=== PATIENT | male | born 1945 | race Caucasian/White ===

== ENCOUNTER 2016-12-26 16:32 | Inpatient (IN) | payer MEDICARE ==
[~2016-12-26] VITALS: Ht 170.2 cm; Wt 75.5 kg
--- NOTE | ~2016-12-26 | HEMODYNAMI ---
PATIENT:CHELSIE CAIN MEDICAL RECORD: [id number] : 49 [id number] ADMISSION DATE: 12/26/16 Generatedon:12/27/201615:59 Patient name: CHELSIE CAIN Patient #: [id number] SSN: [id number] : 1945 Date of study: 12/27/2016 Page: Of Hemodynamic Procedure Report Patient Data Patient Demographics Procedure consent was obtained First Name: CHELSIE Gender: Male Last Name: PAYTON : 1945 Patient #: [id number] Age: 71 year(s) Race: Unknown SSN: [id number] Additional ID: [id number] Contact details Address: [address] [address] State: [place] City: [place] Zip code: [address] Admission Admission Data Admission Date: 12/26/2016 Admission Time: 21:12 Arrival Date: 12/27/2016 Arrival Time: 0:00 Admit Source: Other Room #: D.2120 Height (in.): 67 BSA: 1.92 (m2) Height (cm.): 170.18 BMI: 27.62 (kg/m2) Weight (lbs.): 176.37 Weight (kg.): 80 Lab Results Lab Result Date: 12/27/2016 Lab Result Time: 0:00 Biochemistry Name Units Result Min Max BUN mg/dl 19 --(----)*- 7 18 Creatinine mg/dl 1 --(--*-)-- 0.6 1.3 CBC Name Units Result Min Max Hemoglobin g/dl 16.6 --(---*)-- 13.5 17.5 Procedure Procedure Types Cath Procedure Diagnostic Procedure LHC Coronaries w/Grafts PCI Procedure Coronary Stent Initial Miscellaneous Procedures Moderate Sedation up to 15 minutes Procedure Description Procedure Date Procedure Date: 12/27/2016 Procedure Start Time: 15:30 Procedure End Time: 15:56 Procedure Staff Name Function Julio Cesar Esquivel MD Performing Physician Roseanne Dodge RT Scrub Jose Chance RN Nurse Jv Melendez RT Nuclear Weapons Mechanical Specialist Lalita Arango RT Monitor Procedure Data Cath Procedure Fluoroscopy Diagnostic fluoroscopy Total fluoroscopy Time: time: 10.5 min 10.5 min Diagnostic fluoroscopy Total fluoroscopy dose: 590 dose: 590 mGy mGy Contrast Material Contrast Material Type Amount (ml) Isovue 300 95 Entry Location Entry Primary Successful Side Size Upsize Upsize Entry Closure Succes sful Closure Location (Fr) 1 (Fr) 2 (Fr) Remarks Device Remarks Femoral Right 5 Fr 6 Fr Vascade artery Short Closure System Estimated blood loss: 10 ml Diagnostic catheters Device Type Used For End Catheter Placement Cordis 5Fr JL 4.0 Procedure Catheter (MP) Cordis 5Fr 3DRC Catheter Procedure (MP) Diagnostic Infinity 5Fr Procedure AR 2 MOD catheter Procedure Complications No complications Procedure Medications Medication Administration Route Dosage Oxygen NC 2 l/min Heparin Flush Bag added to field 2 bags (1000units/500ml NS) 0.9% NaCl I.V. 100 ml/hr Fentanyl I.V. 50 mcg Versed I.V. 1 mg Fentanyl I.V. 50 mcg Versed I.V. 1 mg Fentanyl I.V. 50 mcg Heparin Bolus I.V. 4000 units Integrilin (Bolus I.V. 7.3 ml 2mg/ml) Fentanyl I.V. 50 mcg Plavix P.O. 600 mg Amiodarone I.V. drip (600mg/100ml) Hemodynamics Rest BSA: 1.92 (m2) HGB: 16.6 (g/dl) O2 Consumption: Estimated: 216.54 (ml/min) O2 Co nsumption indexed: Estimated:112.78 (ml/min/m) Heart Rate: 62 (bpm) Snapshots Pre Cath Intra NCS Post Cath Vital Signs Time Heart Resp SPO2 NIBP (mmHg) Rhythm Pain Sedation Rate (ipm) (%) Status Level (bpm) 14:48:18 61 21 97 137/70(118) NSR 0 (11) 10(A) , No pain 14:52:38 60 20 99 132/67(104) NSR 0 (11) 10(A) , No pain 14:56:52 60 20 97 127/65(98) NSR 0 (11) 10(A) , No pain 15:01:04 61 20 98 124/67(98) NSR 0 (11) 10(A) , No pain 15:05:20 60 20 98 130/65(81) NSR 0 (11) 10(A) , No pain 15:09:38 59 18 97 132/66(101) NSR 0 (11) 10(A) , No pain 15:13:58 61 18 95 132/65(100) NSR 0 (11) 10(A) , No pain 15:18:14 59 20 94 117/62(91) NSR 0 (11) 9(A) , No pain 15:22:26 59 21 95 129/69(107) NSR 0 (11) 9(A) , No pain 15:26:40 61 19 92 139/80(116) NSR 0 (11) 9(A) , No pain 15:30:56 64 19 94 145/83(116) NSR 0 (11) 9(A) , No pain 15:35:10 67 19 93 153/88(125) NSR 0 (11) 9(A) , No pain 15:39:26 73 18 95 160/86(130) NSR 0 (11) 9(A) , No pain 15:43:44 74 18 92 164/93(129) NSR 0 (11) 9(A) , No pain 15:48:08 73 17 93 166/92(137) NSR 0 (11) 9(A) , No pain 15:52:33 74 17 92 167/85(137) NSR 0 (11) 9(A) , No pain 15:56:06 71 18 94 164/85(133) NSR 0 (11) 10(A) , No pain Medications Time Medication Route Dose Verified Delivered Reason Notes Effectiveness by by 14:56:13 Oxygen NC 2 l/min Jsoe Garcia used for Robson Chance project manager RN 14:56:21 Heparin Flush added 2 bags Jose Garcia used for Bag to Robson Chance project manager (1000units/500ml field RN NS) 14:56:35 0.9% NaCl I.V. 100 ml/hr Jose Garcia Per physician Robson Chance RN RN 15:14:01 Fentanyl I.V. 50 mcg Jose Garcia for sedation Robson Chance RN RN 15:14:10 Versed I.V. 1 mg Jose Jose for sedation Robson Chance RN RN 15:15:27 Fentanyl I.V. 50 mcg Jose Jose for sedation Robson Chance RN RN 15:15:32 Versed I.V. 1 mg Jose Jose for sedation Robson Chance RN RN 15:21:42 Fentanyl I.V. 50 mcg Jose Jose for sedation Robson Chance RN RN 15:40:10 Integrilin I.V. 7.3 ml Jose Jose for wasted (Bolus 2mg/ml) Robson Chance RN antiplatelet 2.7mL of RN therapy integrilin 15:40:10 Heparin Bolus I.V. 4000 units Jose Jose for Robson Chance RN anticoagulation RN 15:50:58 Fentanyl I.V. 50 mcg Jose Jose for sedation Robson Chance RN RN 15:54:34 Plavix P.O. 600 mg Jose Jose for Robson Chance RN antiplatelet RN therapy 15:57:18 Amiodarone I.V. discontinued Jose Garcia Per physician (600mg/100ml) drip Robson Chance RN patient centered care specialist Log Time Note 14:30:05 Jv Melendez RT(R) sent for patient. Start room use. 14:43:01 Admit Source: Other 14:43:25 Patient Height : 170.18 inches 14:43:30 Patient Weight : 80 lbs 14:44:08 Lab Result : BUN 19 mg/dl 14:44:08 Lab Result : Hemoglobin 16.6 g/dl 14:44:08 Lab Result : Creatinine 1 mg/dl 14:44:26 Procedure type changed to Cath procedure, Diagnostic procedure, LHC, Coronaries w/Grafts, PCI procedure, Coronary Stent Initial, Miscellaneous Procedures, Moderate Sedation up to 15 minutes 14:44:34 Diagnostic Cath Status : Elective 14:45:10 Time tracking: Regular hours 14:45:15 Plan of Care:Hemodynamics will remain stable., Cardiac rhythm will remain stable., Comfort level will be maintained., Respiratory function will remain adequate., Patient/ family verbilizes understanding of procedure., Procedure tolerated without complication., Recovers from procedure without complications.. 14:45:21 Patient received from Med II to [facility] 3 Alert and oriented. Tansferred to table in Supine position. 14:45:22 Warm blankets applied, and mairah hugger turned on for patient comfort. 14:45:23 Correct patient and procedure confirmed by team. 14:45:25 Signed procedure consent form obtained from patient. 14:45:50 H&P Date Dictated: 12/26/2016 Within 30 days and on chart.. 14:45:54 Pre-procedure instructions explained to patient. 14:45:55 Family in waiting room. 14:45:57 Patient NPO since Midnight. 14:46:03 Is the patient allergic to Iodine/contrast media? No. 14:46:10 Is patient on blood thinner?No 14:46:17 Patient diabetic? No. 14:46:21 Snore? Yes 14:46:39 IV patent on arrival in left forearm with 0.9% NaCl at [facility]. 14:46:45 Lab results completed and on chart. 14:46:50 Right groin area was prepped with chlora-prep and draped in sterile fashion 14:46:51 Alarms reviewed by R. N. 14:46:52 Sharps counted by scrub and verified by R.N. 14:46:53 Physician paged 14:47:10 ECG and BP/O2 sat monitors applied to patient. 14:47:13 Vital chart was started 14:47:16 Baseline sample Acquired. 14:47:20 Full Disclosure recording started 14:56:13 Oxygen 2 l/min NC was given by Jose Chance RN; used for procedure; 14:56:21 Heparin Flush Bag (1000units/500ml NS) 2 bags added to field was given by Jose Chance RN; used for procedure; 14:56:35 0.9% NaCl 100 ml/hr I.V. was given by Jose Chance RN; Per physician; 15:04:30 Zero performed for pressure channel P1 15:04:47 Zero performed for pressure channel P1 15:13:48 Physician arrived 15:13:49 --------ALL STOP TIME OUT------ 15:13:49 Final Timeout: patient, procedure, and site verified with staff and physician. All members of the team are in agreement. 15:13:52 Right groin site verified by team. 15:13:59 Sedation plan: IV Moderate Sedation Versed, Fentanyl 15:14:01 Fentanyl 50 mcg I.V. was given by Jose Chance RN; for sedation; 15:14:10 Versed 1 mg I.V. was given by Jose Chance RN; for sedation; 15:15:27 Fentanyl 50 mcg I.V. was given by Jose Chance RN; for sedation; 15:15:32 Versed 1 mg I.V. was given by Jose Chance RN; for sedation; 15:21:42 Fentanyl 50 mcg I.V. was given by Jose Chance RN; for sedation; 15:26:52 Arrival Date: 12/27/2016 12:00:00 AM 15:29:44 Procedure started. 15:29:46 Use device set Femoral Dx 15:29:58 Acist Syringe opened to sterile field. 15:29:58 Bag Decanter opened to sterile field. 15:29:59 Medline Cath Pack opened to sterile field. 15:30:00 Terumo 5Fr [place] Sheath opened to sterile field. 15:30:00 St Pj 260cm J .035 wire opened to sterile field. 15:30:02 Acist Hand Control opened to sterile field. 15:30:02 Acist Manifold opened to sterile field. 15:30:04 Diagnostic Infinity 5Fr Multipack catheter opened to sterile field. 15:30:05 Tegaderm 4 x 4 opened to sterile field. 15:30:39 Local anesthetic to right femoral artery with Lidocaine 2% by Julio Cesar Esquivel MD.INITIAL ACCESS ONLY 15:31:12 A 5 Fr sheath was inserted into the Right Femoral artery 15:34:22 A Cordis 5Fr JL 4.0 Catheter (MP) was advanced over the wire and used for Procedure. 15:34:29 LCA angiography performed. 15:35:07 A Cordis 5Fr 3DRC Catheter (MP) was advanced over the wire and used for Procedure. 15:35:12 MOORE to LAD angiography performed. 15:35:22 RCA angiography performed. 15:36:00 A Diagnostic Infinity 5Fr AR 2 MOD catheter was advanced over the wire and used for Procedure. 15:36:47 SVG to RCA angiography performed. 15:37:05 Catheter removed. 15:38:20 Proceeding to intervention. 15:38:57 Sheath upsized to a 6 Fr Short. 15:40:10 Heparin Bolus 4000 units I.V. was given by Jose Chance RN; for anticoagulation; 15:40:10 Integrilin (Bolus 2mg/ml) 7.3 ml I.V. was given by Jose Chance RN; for antiplatelet therapy; wasted 2.7mL of integrilin 15:40:28 Terumo 6Fr [place] Sheath opened to sterile field. 15:40:29 Promosome BasixCompak Inflation Kit opened to sterile field. 15:40:30 House Whisper J 300cm 0.014 guide wire opened to sterile field. 15:40:32 Cordis 6FR XBLAD 3.5 guide catheter opened to sterile field. 15:40:52 whisper wire advanced. 15:41:06 Catheter removed. unable to cannulate vessel. 15:42:17 Medtronic Launcher 6Fr EBU 3.0 guide catheter opened to sterile field. 15:42:30 6 Fr EBU 3.0 guide catheter was inserted over the wire 15:45:08 Wire removed. unable to cross lesion. 15:45:38 RentJiffy Fielder XT J 300cm 0.014 guide wire opened to sterile field. 15:48:23 Inflation number: 1 A [place] Sci Glascock 3.0 X 12 balloon was prepped and advanced across the Prox CX, then inflated to 13 ANGELI for 0:10 (min:sec). 15:48:29 Inflation number: 2 The [place] Sci Glascock 3.0 X 12 balloon was reinflated across the Prox CX, to 13 ANGELI for 0:10 (min:sec). 15:49:19 Balloon removed over the wire. 15:50:58 Fentanyl 50 mcg I.V. was given by Jose Chance RN; for sedation; 15:52:04 Inflation Number: 3 A Medtronic Resolute 3.0 X 15 stent was prepped and advanced across the Prox CX. The stent was deployed at 17 ANGELI for 0:10 (min:sec). 15:52:35 Vascade 6/7 Fr Closure Device opened to sterile field. 15:52:38 Wire removed. 15:52:39 Guide catheter removed. 15:54:04 Sheath removed intact; hemostasis achieved with Vascade Closure System to the Right Femoral artery. 15:54:08 Procedure ended.(Physican Out) 15:54:20 Fluoroscopy time 10.50 minutes. 15:54:24 Fluoroscopy dose: 590 mGy 15:54:24 Flurop Dose total: 590 15:54:30 Contrast amount:Isovue 300 95ml. 15:54:31 Sharps counted by scrub and verified by R.N. 15:54:34 Plavix 600 mg P.O. was given by Jose Chance RN; for antiplatelet therapy; 15:54:39 Insertion/operative site no bleeding no hematoma. 15:54:42 Post-op/insertion site Right Femoral artery dressed using a 4 x 4 and Tegaderm. 15:54:54 Post-procedure physical assessment completed. ASA score P 2 - A patient with mild systemic disease as per Julio Cesar Esquivel MD. 15:54:57 Post procedure rhythm: sinus rhythm 15:55:01 Estimated blood loss: 10 ml 15:55:02 Post procedure instruction explained to patient.Patient verbalizes understanding. 15:55:13 Procedure and supply charges have been captured, reviewed, submitted and are correct. 15:55:38 Procedure Complication : No complications 15:55:50 See physician's report for complete and final results. 15:55:59 Report given to [facility]. 15:56:03 Patient transfered to [facility] with Stretcher. 15:56:05 Procedure ended. 15:56:05 Full Disclosure recording stopped 15:56:08 End room use (Document Last) 15:57:18 Amiodarone (600mg/100ml) discontinued I.V. drip was given by Jose hCance RN; Per physician; 15:59:08 Vital chart was stopped Intervention Summary Intervention Notes Time ActionType Lesion and Equipment Action# Pressure Duration Attributes Used 15:48:23 Inflate Prox CX [place] 1 13 00:10 balloon Sci Glascock 3.0 X 12 balloon 15:48:29 Reinflate Prox CX [place] 2 13 00:10 balloon Sci Glascock 3.0 X 12 balloon 15:52:04 Place stent Prox CX Medtronic 3 17 00:10 Resolute 3.0 X 15 stent Device Usage Item Name Manufacture Quantity Catalog Number Hospital Part Current Mini [facility] Lot# / Charge Number Stock Stock Serial# Code Acist Acist 1 [id number] [id number] 074565 454817 20 Syringe Medical Systems Inc Bag Microtek 1 2002S 361471 68292 440931 5 Apsalar Inc. Medline Cardinal 1 [id number] 129766 26296 406621 5 Cath Pack Health Terumo 5Fr Terumo 1 [id number] 223552 153172 557920 [address] Pj St Pj 1 006298 449482 523550 475452 30 260cm J .035 wire Acist Hand Acist 1 46906 821089 670136 323965 5 RediLearning Medical Systems Inc Acist Acist 1 15194 123763 845977 790535 5 International Battery Medical Systems Inc Diagnostic Cardinal 1 [id number] 305751 57476 733236 30 Infinity Health 5Fr Multipack catheter Tegaderm 4 3M 1 1626W 746227 408322 592770 5 x 4 Cordis 5Fr Cardinal 1 [id number] 5 JL 4.0 Health Catheter (MP) Cordis 5Fr Cardinal 1 749602 5 3DRC Health Catheter (MP) Terumo 6Fr Terumo 1 [id number] 028485 103228 927445 40 [place] Sheath [facility] 1 [id number] 965733 750906 429651 15 BasixCompak Medical Inflation Kit [facility] 1 [id number] 279945 515117 558179 5 Whisper J Vascular 300cm 0.014 guide wire Cordis 6FR Cardinal 1 [id number] 250332 481022 041022 10 XBLAD 3.5 Health guide catheter Diagnostic Cardinal 1 [id number] 415478 201921 390792 20 Infinity Health 5Fr AR 2 MOD catheter Medtronic Medtronic 1 [id number] 441470 23613 426859 0 Launcher 6Fr EBU 3.0 guide catheter [facility] 1 [id number] 053409 600541 595013 5 Fielder XT Vascular J 300cm 0.014 guide wire [place] Sci [place] 1 [id number] 400412 732801 963926 1 [id number] Glascock Scientific 3.0 X 12 balloon Medtronic Medtronic 1 [id number] 374943 913162 7 [id number] Resolute 3.0 X 15 stent Vascade 6/7 Cardiva 1 [id number] 621796 630316 473230 5 Fr Closure Medical, Device Inc. Signature Audit Pride Stage Time Signature Unsigned Intra-Procedure 12/27/2016 Lalita Arango 3:59:05 PM RT(R) Signatures Monitor : Lalita Nba Signature : RT Date : Time : [address] [place] [address]
[~2016-12-26 16:32] MED LIST: ALDACTONE50 MG PO; ASPIRIN 81 MG E81 MG PO; BAYER CHEWABLE81 MG OR; CEFTIN500 MG PO; CORDARONE200 MG PO; COREG6.25 MG PO; COUMADIN1 MG PO; COUMADIN2 MG PO; COUMADIN4 MG; FISH OIL 1,2001 CA1 PO; LASIX40 MG PO; LISINOPRIL10 MG PO; LISINOPRIL5 MG PO; LOPRESSOR25 MG PO; MAXZIDE-25 MG T1 TAB OR; ZETIA10 MG PO; ZOCOR80 MG OR
[2016-12-26 17:12] LABS: BASOPHILS 0.2 % (0.0-2.0); EOSINOPHILS 3.5 % (0-7); HEMATOCRIT 49.3 % (42.0-54.0); HEMOGLOBIN 16.6 g/dL (13.5-17.5); IMMATURE GRANULOCYTES 0.3 % (0-5); LYMPHOCYTES 9.3 % (15-50); MCHC 33.7 g/dL (31.0-37.0); MCV 92.1 fL (80.0-100.0); MEAN PLATELET VOLUME 11.2 fL (7.4-10.4); MONOCYTES 10.2 % (2-11); NEUTROPHILS 76.5 % (40-80); PLATELET COUNT 183 10x3/uL (130-400); RBC 5.35 10x6/uL (4.20-6.10); RDW 13.4 % (11.5-14.5); WBC 9.5 10x3/uL (4.8-10.8)
[2016-12-26 17:27] LABS: ALBUMIN 3.7 g/dL (3.4-5.0); ALKALINE PHOSPHATASE 92 U/L (46-116); ALT (SGPT) 34 U/L (10-68); BILIRUBIN - TOTAL 0.41 mg/dL (0.2-1.3); CALC OSMOLALITY 281 mosm/kg (275-300); CALCIUM 8.9 mg/dL (8.5-10.1); CARBON DIOXIDE 24.3 mmol/L (21.0-32.0); CHLORIDE - SERUM 107 mmol/L (98-107); GLUCOSE 117 mg/dL (74-106); POTASSIUM - SERUM 4.7 mmol/L (3.5-5.1); PROTEIN - SERUM 7.4 g/dL (6.4-8.2); SODIUM 140 mmol/L (136-145); UREA NITROGEN 19 mg/dL (7-18); eGFR NON AFRICAN AMERICAN 79 mL/min (90-120)
[2016-12-26 17:52] LABS: CKMB 1.7 U/L (0.0-3.6); CREATINE KINASE 76 UL (21-232); TROPONIN-I 0.023 ng/mL (0.000-0.060)
[2016-12-26 20:00] LABS: APTT 27.8 SECONDS (22.8-39.4); INR 1.31 (0.85-1.17); PROTIME 16.2 SECONDS (11.6-15.0)
[2016-12-26 21:07] LABS: MAGNESIUM - SERUM 2.2 mg/dL (1.8-2.4)
--- NOTE | 2016-12-26 21:58 | NUR ---
REPORT FROM ANDREA CHACKO.
--- NOTE | 2016-12-26 23:00 | NUR ---
ARRIVED TO FLOOR, VIA STRETCHER ACCOMPANIED BY HOSPITAL STAFF AND FAMILY. ORIENTED TO UNIT. PLACED ON TELEMETRY. CALL LIGHT IN REACH. WILL CONTINUE TO MONITOR. SEE NURSE ASSESSMENT.
[2016-12-26 23:29] VITALS: BP 108/70; Ht 170.2 cm; Wt 75.5 kg
--- NOTE | 2016-12-27 03:08 | NUR ---
DECREASED DRIP TO 0.5MG. HR REMAINS 130S ST.
--- NOTE | 2016-12-27 06:16 | NUR ---
DR. JONES AT BEDSIDE NEW ORDERS RECEIVED. ANOTHER 15OMG BOLUS AND INCREASE AMIODARONE DRIP TO 1MG/MIN. BP 101/67, WILL BOLUS OVER 30MIN INSTEAD OF 10MIN.
[2016-12-27 08:02] VITALS: BP 106/47
--- NOTE | 2016-12-27 09:17 | NUR ---
LOWERED AMIODARONE DRIP BACK TO ORIGINAL DOSE OF 0.5MG/HR R/T HR STAYING IN SINUS RHYTHM BETWEEN 58-60. WILL CONTINUE TO MONITER TELEMETRY STATUS CLOSELY.
[2016-12-27 10:40] LABS: BASOPHILS 0.1 % (0.0-2.0); EOSINOPHILS 0.3 % (0-7); HEMATOCRIT 45.6 % (42.0-54.0); HEMOGLOBIN 15.6 g/dL (13.5-17.5); IMMATURE GRANULOCYTES 0.1 % (0-5); LYMPHOCYTES 10.2 % (15-50); MCH 31.2 pg (26.0-34.0); MCHC 34.2 g/dL (31.0-37.0); MCV 91.2 fL (80.0-100.0); MEAN PLATELET VOLUME 10.9 fL (7.4-10.4); MONOCYTES 8.5 % (2-11); NEUTROPHILS 80.8 % (40-80); PLATELET COUNT 166 10x3/uL (130-400); RDW 13.7 % (11.5-14.5)
[2016-12-27 10:52] LABS: CALC OSMOLALITY 279 mosm/kg (275-300); CALCIUM 8.8 mg/dL (8.5-10.1); CARBON DIOXIDE 25.6 mmol/L (21.0-32.0); CHLORIDE - SERUM 106 mmol/L (98-107); CREATININE - SERUM 0.8 mg/dL (0.6-1.3); GLUCOSE 103 mg/dL (74-106); POTASSIUM - SERUM 4.2 mmol/L (3.5-5.1); SODIUM 139 mmol/L (136-145); UREA NITROGEN 17 mg/dL (7-18); eGFR NON AFRICAN AMERICAN > 90 mL/min (90-120)
[2016-12-27 11:09] VITALS: BP 137/59
--- NOTE | 2016-12-27 12:24 | NUR ---
CONSENTS SIGNED FOR CATH LATER TODAY AND PLACED IN CHART. PT HAD LIGHT LUNCH PER ORDER AND IS RESTING QUIETLY IN BED WITH AT BEDSIDE. AMIODARONE DRIP STILL IN PLACE @0.5MG/HR. TELEMETRY RUNNING SINUS @60. WILL CPOC.
--- NOTE | 2016-12-27 13:20 | HP ---
PATIENT: CHELSIE CAIN MEDICAL RECORD: [id number] ACCOUNT: [id number] LOCATION:[address] : [birth year] ADMISSION DATE: 12/26/16 HISTORY AND PHYSICAL EXAMINATION REASON FOR ADMISSION: Fast heart rate and shortness of breath. HISTORY OF PRESENT ILLNESS: The patient is a 71-year-old male with history of ischemic cardiomyopathy, CAD, post-bypass grafting in 2007. He has a pacemaker defibrillator. His last EF was 25% and last angiogram was 2 years previously. He said he felt pretty well and walking a mile a day on a treadmill without symptoms until yesterday afternoon about 3:30 p.m., he had sudden onset of shortness of breath, noticed his heart rate was increased. He arrived to the Emergency Room, was in a wide complex tachycardia. He was given Cordarone with improvement in his ventricular rate. He denies chest pain now. PAST MEDICAL HISTORY: Cardiomyopathy, CAD post-WA, essential hypertension, blind left eye, aortic stenosis with aortic valve replacement, essential hypertension, hyperlipidemia, history of stroke with retinal artery occlusion, acute WA times 2 in the past, last January 2014 with V-tach and defibrillator placement, osteoarthritis, history of squamous cell carcinoma of the skin, removed, and atrial fibrillation. FAMILY HISTORY: Father with hypertension and lung cancer from smoking, and mother with CAD and hypertension. ALLERGIES: None known. CURRENT MEDICATIONS: Aspirin 81 mg a day, simvastatin 80 mg at h.s., Zetia 10 mg daily, Coumadin 1 mg p.o. daily, 2 mg p.o. once weekly, Lasix 20 mg p.o. q.a.m., Coreg 6.25 mg p.o. b.i.d., amiodarone 200 mg p.o. daily, and lisinopril 5 mg p.o. daily. 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 Never smoked. No alcohol use. REVIEW OF SYSTEMS: GENERAL: He felt well until yesterday when he developed fatigue and shortness of breath. HEENT: Chronic blindness in his left eye, fair vision in the right. Denies any sinus congestion, sore throat or new hearing difficulty. RESPIRATORY: Shortness of breath with episode yesterday. No sputum production. CARDIAC: Denied chest pain, but had marked palpitations that he can feel yesterday. No claudication. GASTROINTESTINAL: No nausea, vomiting, change in stools, or blood per rectum. GENITOURINARY: Nocturia once nightly. ENDOCRINE: Denies polyuria, polydipsia, heat, or cold intolerance. NEUROLOGIC: Remote history of stroke. No motor deficits. Currently no history of seizures or memory loss. MUSCULOSKELETAL: Chronic arthralgias in the lumbar spine. PSYCHIATRIC: Denies depressed mood. PHYSICAL EXAMINATION: VITAL SIGNS: Blood pressure was 131/77 with a temperature of 98 degrees Fahrenheit orally, pulse 138, respirations of 27 and unlabored. HISTORY AND PHYSICAL [id number] CHELSIE CAIN HEENT: Normocephalic. He has scarring and plaque in his left cornea with no vision. Right eye has fair vision. NECK: No bruits or masses. CHEST: Distant breath sounds without wheeze or rales. HEART: Tachycardic with an aortic valvular murmur. ABDOMEN: Soft. GENITOURINARY: Deferred. EXTREMITIES: No CCE. NEUROLOGIC: The patient oriented to person, place, and time. Cranial nerves are intact grossly. No motor deficits. Gait not tested. PSYCHIATRIC: Denies depressed mood. LABORATORY DATA: His white count is 9500 with H&H of 16 and 49 respectively. BMP is normal with a BUN of 19, potassium of 4.7, and glucose of 117, nonfasting. Magnesium normal at 2.2. INR is 1.31. DIAGNOSTIC DATA: Chest x-ray shows stable cardiomegaly with no pulmonary edema appreciated. EKG showed sinus tachycardia with bundle branch block, abnormal EKG showing a wide based ventricular tachycardia. ASSESSMENT: 1. Symptomatic ventricular tachycardia. 2. History of coronary artery disease. 3. Cardiomyopathy with EF of 25%. 4. Hypertension. 5. Hyperlipidemia. 6. History of aortic valve replacement with subtherapeutic INR. PLAN: He is currently on cardiac floor with constant monitoring. IV amiodarone. Dr. Whyte has seen the patient. We will interrogate pacemaker with further recommendations to follow. TRANSINT:[id number] Voice Confirmation ID: [id number] DOCUMENT ID: [id number] KIMBERLY THOMAS MD at 1320 CC: [id number] DICTATION DATE: 12/27/16810 FRAMING CARPENTER: 12/27/16 0915 ADM IN [facility] [address] [place] [address]
--- NOTE | 2016-12-27 14:01 | NUR ---
Patient Name: CHELSIE CAIN Admission Status: ER Accout number: [id number] Admission Date: 12-26-2016 : 1945 Admission Diagnosis: Attending: TAZ Current LOS: 1 Anticipated DC Date: Planned Disposition: Home Primary Insurance: [facility] Discharge Planning Comments: * Is the patient Alert and Oriented? Yes 0 * How many steps to enter\exit or inside your home? 2 0 * PCP DR. THOMAS 0 * Pharmacy [facility] OR [facility] ORDER 0 * Preadmission Environment Home with Family 0 * ADLs Independent 0 * Equipment None 0 * Other Equipment NO MEDICAL EQUIPMENT PROVIDER PREFERENCE 0 * List name and contact numbers for known caregivers / representatives who currently or will assist patient after discharge: IDALIA PARKER, / [phone] 0 * Community resources currently utilized None 0 * Please name any agencies selected above. NONE 0 * Additional services required to return to the preadmission environment? No 0 * Can the patient safely return to the preadmission environment? Yes 0 * Has this patient been hospitalized within the prior 30 days at any hospital? No 0 CM MET WITH PT AND SPOUSE IN ROOM TO DISCUSS DISCHARGE PLANNING AND NEEDS. PT REPORTS LIVING AT HOME INDEPENDENTLY WITH SPOUSE. PT HAS NO MEDICAL EQUIPMENT AND NO OUTSIDE SERVICES ASSISTING IN THE HOME. CM DISCUSSED AVAILABILITY OF HOME HEALTH, REHAB SERVICES AND MEDICAL EQUIPMENT. PT DENIES DISCHARGE NEEDS, REPORTS HER SPOUSE WILL PICK HER UP FOR DISCHARGE HOME. PT PLANS TO DISCHARGE HOME WITH SPOUSE, NO ANTICIPATED NEEDS. CM TO FOLLOW AND ASSIST IF NEEDED. Door To Door Salesperson: Db Cooley
--- NOTE | 2016-12-27 15:03 | NUR ---
PT OFF TO COIN BOX COLLECTOR. FAMILY WAITING IN ROOM. NO CURRENT NEEDS.
--- NOTE | 2016-12-27 18:21 | NUR ---
VSS. PERIPHERAL PULSES INTACT. R.GROIN DRSG CDI NO S/S OF BLEEDING OR HEMATOMA NOTED. FAMILY AT BEDSIDE. CL IN REACH. WILL CTM.
[2016-12-27 20:20] VITALS: BP 99/42
[2016-12-28 00:15] VITALS: BP 107/52
[2016-12-28 04:20] VITALS: BP 122/47
[2016-12-28 05:09] LABS: BASOPHILS 0.3 % (0.0-2.0); EOSINOPHILS 2.5 % (0-7); HEMATOCRIT 42.6 % (42.0-54.0); HEMOGLOBIN 14.2 g/dL (13.5-17.5); IMMATURE GRANULOCYTES 0.1 % (0-5); LYMPHOCYTES 7.2 % (15-50); MCH 30.7 pg (26.0-34.0); MCHC 33.3 g/dL (31.0-37.0); MEAN PLATELET VOLUME 11.5 fL (7.4-10.4); MONOCYTES 11.6 % (2-11); NEUTROPHILS 78.3 % (40-80); PLATELET COUNT 155 10x3/uL (130-400); RBC 4.63 10x6/uL (4.20-6.10); RDW 13.8 % (11.5-14.5)
[2016-12-28 05:18] LABS: WBC 7.1 10x3/uL (4.8-10.8)
[2016-12-28 06:11] LABS: ANION GAP 13.2 mmol/L (8-16); CALCIUM 8.1 mg/dL (8.5-10.1); CARBON DIOXIDE 24.9 mmol/L (21.0-32.0); POTASSIUM - SERUM 4.1 mmol/L (3.5-5.1); T4 THYROXIN - FREE 2.19 ng/dL (0.76-1.46); THYROID STIMULATING HORMONE 0.01 uIU/mL (0.36-3.74)
[2016-12-28 06:12] LABS: CREATININE - SERUM 1.1 mg/dL (0.6-1.3)
[2016-12-28 06:13] LABS: TROPONIN-I 0.073 ng/mL (0.000-0.060)
[2016-12-28 08:39] VITALS: BP 108/54
[2016-12-28] MEDS ORDERED: LOVENOX80 MG/0.8 SC (10:16)
[2016-12-28] MEDS ORDERED: PLAVIX75 MG PO (10:16)
[2016-12-28] MEDS ORDERED: CORDARONE200 MG PO (10:17)
[2016-12-28] MEDS ORDERED: COUMADIN2 MG PO (10:20)
[2016-12-28] MEDS ORDERED: PEPCID20 MG PO (10:21)
--- NOTE | 2016-12-28 12:30 | NUR ---
DISCHARGE INSTRUCTIONS COMPLETED. PAPERS SIGNED AND OBTAINED IN CHART. SCRIPTS GIVEN FOR PLAVIX, PEPCID AND LOVENOX. D/C PTS L.WRIST PIV AND L.AC PIV WITH CATHETER TIP FULLY INTACT. BELONGINGS COLLECTED. PT READY TO BE WHEELED DOWN BY HOSPITAL TELEVISION RENTAL CLERK, AT SIDE. NO FURTHER NEEDS.
--- NOTE | 2017-01-03 08:46 | OP ---
PATIENT NAME: CHELSIE CAIN MEDICAL RECORD: [id number] :49 LOCATION:D.M2 D.2120 ADMISSION DATE:12/26/16 SURGEON: BRITT ZHANG MD DATE OF OPERATION: 12/27/2016 PROCEDURES: 1. PTCA stent left circumflex. 2. Left heart catheterization. 3. Selective coronary angiography. 4. Vein graft angiography. 5. MOORE angiography. PROCEDURE IN DETAIL: After informed consent was obtained and after a detailed explanation of the risks, benefits as well as alternative therapies, the patient elected to proceed with angiogram and angioplasty. The right femoral area was prepped and draped in normal sterile fashion. The right femoral artery was cannulated via modified Seldinger technique with placement of a 6-Divehi sheath. All catheters exchanged through this sheath. FINDINGS 1. The left main showed no significant angiographic disease. 2. Left anterior descending is totally occluded in the proximal vessel. 3. MOORE to the LAD is widely patent. 4. Left circumflex has a 90% stenosis at the ostium. 5. The right coronary is totally occluded in the mid vessel. 6. Vein graft to the right coronary is widely patent. PTCA STENT OF THE LEFT CIRCUMFLEX: The stent used was a 3.0 x 15 mm Resolute. Result was 0% residual stenosis. OVERALL IMPRESSION: Successful percutaneous transluminal coronary angioplasty stent of the left circumflex going from 90% initial stenosis to 0% residual. TRANSINT:[id number] Voice Confirmation ID: [id number] DOCUMENT ID: [id number] BRITT ZHANG MD at 0846 CC: [id number] DICTATION DATE: 12/27/16 1600 HOT WORT SETTLER: 12/27/162045 DIS IN 12/28/16 [id number] [place] [address]
--- NOTE | 2017-01-03 08:46 | DS ---
PATIENT:CHELSIE MÉNDEZ :49 MEDICAL RECORD: [id number] DISCHARGE SUMMARY ADMISSION DATE: 12/26/16 DISCHARGE DATE: 12/28/16 DIAGNOSES: 1. Ventricular tachycardia. 2. Cardiomyopathy. 3. Coronary artery disease. 4. Percutaneous transluminal coronary angioplasty stent left circumflex this admission. 5. Sick sinus syndrome, status post pacemaker, implantable cardioverter-defibrillator. HOSPITAL COURSE: Mr. Méndez presents with anginal symptomatology and ventricular tachycardia. He was placed on amiodarone, underwent cardiac catheterization revealing 90% stenosis of the circumflex, underwent successful PTCA stent of this territory. No other significant stenosis with patent grafts to the MOORE to the LAD and vein graft to the RCA, was discharged home with the addition of Plavix to his medical regimen. He is on Coumadin for aortic valve replacement. He will continue his Coumadin at previous dosing. We will check an INR in 1 week. Also, he was placed on amiodarone 200 mg b.i.d. TRANSINT:[id number] Voice Confirmation ID: [id number] DOCUMENT ID: [id number] BRITT ZHANG MD at 0846 CC: [id number] DICTATION DATE: 12/28/16 0954 CABLE TELEVISION LINE TECHNICIAN: 12/28/16 2135 DIS IN 12/28/16 [id number] [place] [address]
--- NOTE | 2017-01-10 08:04 | DS ---
PATIENT:CHELSIE CAIN :49 MEDICAL RECORD: [id number] DISCHARGE SUMMARY ADMISSION DATE: 12/26/16 DISCHARGE DATE: 12/28/16 DISCHARGE DIAGNOSES: 1. Symptomatic ventricular tachycardia. 2. Left circumflex stenosis post-PTCA. 3. Hypertension. 4. Hyperlipidemia. CONSULTANTS: Dr. Esquivel and Dr. Whyte. PROCEDURES PERFORMED: PTCA left circumflex. HOSPITAL COURSE: A 71-year-old male with history of 3 prior CABG. He presented with fast heart rate, which was symptomatic and was found to be in slow V-tach in the range of 140-130 beats per minute. He had some mild shortness of breath, but no significant chest pain. In the Emergency Room, he was begun on IV Cordarone drip once moved to the floor under Dr. Aguirre care, the patient then converted to sinus rhythm with a rate of 60. He underwent cardiac catheterization later that day by Dr. Esquivel and his grafts of the RCA and LAD were widely patent, but he had a proximal ostial left circumflex 90% stenosis. That was a successful angioplasty. Postprocedure, the patient has felt well, has in sinus rhythm throughout the night. Dr. Esquivel then signed off cardiac standpoint. The patient's INR is 1.3 and due to his previous AVR, needs to be greater than 2.5. So therefore go home on subQ Lovenox until INR is greater than 2.5. DISCHARGE MEDICATIONS: Plavix 75 mg p.o. daily, Lovenox 80 mg subQ q.12 hours, Cordarone 2 mg p.o. b.i.d., Zocor 80 mg with evening meal, Lasix 20 mg p.o. q.a.m., aspirin 81 mg a day, Coreg 6.25 mg b.i.d., lisinopril 5 mg daily, Coumadin 2 mg at 5 p.m. daily. DIET: Cardiac. ACTIVITY: Progress as tolerated, return to my clinic for INR in 2 days, appointment in 1 week. TRANSINT:[id number] Voice Confirmation ID: [id number] DOCUMENT ID: [id number] KIMBERLY THOMAS MD at 0804 CC: [id number] DICTATION DATE: 12/28/16 1020 MUSIC ADAPTER: 12/28/16 2355 DIS IN 12/28/16 [facility] [address] [place] [address]
== END 2016-12-28 12:32 | disposition home or self-care (01) | DRG 247 ==
LOC: D.ER 16:32 → D.M2 21:12
PROVIDERS: Emergency Medicine; Internal Medicine Interventional Cardiology; ADMIT Family Medicine
PROC: B2111ZZ Fluoroscopy of Multiple Coronary Arteries using Low Osmolar Contrast (ICD-10-PCS; 2016-12-27)
PROC: B2151ZZ Fluoroscopy of Left Heart using Low Osmolar Contrast (ICD-10-PCS; 2016-12-27)
PROC: B2181ZZ Fluoroscopy of Left Internal Mammary Bypass Graft using Low Osmolar Contrast (ICD-10-PCS; 2016-12-27)
PROC: 027034Z Dilation of Coronary Artery, One Artery with Drug-eluting Intraluminal Device, Percutaneous Approach (ICD-10-PCS; principal; 2016-12-27 14:30)
PROC: 4A023N7 Measurement of Cardiac Sampling and Pressure, Left Heart, Percutaneous Approach (ICD-10-PCS; 2016-12-27 14:30)
DX: I25.10 Atherosclerotic heart disease of native coronary artery without angina pectoris (principal); I47.2 Ventricular tachycardia; I50.22 Chronic systolic (congestive) heart failure; Z79.01 Long term (current) use of anticoagulants; I11.0 Hypertensive heart disease with heart failure; E78.5 Hyperlipidemia, unspecified; Z95.5 Presence of coronary angioplasty implant and graft; Z95.1 Presence of aortocoronary bypass graft; Z95.0 Presence of cardiac pacemaker; Z95.2 Presence of prosthetic heart valve; Z86.73 Personal history of transient ischemic attack (TIA), and cerebral infarction without residual deficits; I42.9 Cardiomyopathy, unspecified; I25.5 Ischemic cardiomyopathy

== ENCOUNTER 2021-01-10 08:47 | Emergency (ER) | payer OTHER ==
[2016-12-26 23:29] VITALS: Ht 170.2 cm; Wt 78.2 kg
[~2021-01-10] VITALS: Ht 170.2 cm; Wt 78.2 kg
[~2021-01-10 08:47] MED LIST changes: +LOVENOX80 MG/0.8 SC; +PEPCID20 MG PO; +PLAVIX75 MG PO
[2021-01-10] MEDS ORDERED: BETAPACE 80 MG80 MG PO (08:57)
[2021-01-10] MEDS ORDERED: RESTORIL15 MG PO (08:58)
[2021-01-10] MEDS ORDERED: JANTOVEN2 MG PO (08:59)
[2021-01-10] MEDS ORDERED: ACETAMINOPHEN500 M1 PO (10:38)
[2021-01-10] MEDS ORDERED: CYCLOBENZAPRINE10 MG PO (10:38)
[2021-01-10] MEDS ORDERED: NAPROSYN500 MG PO (10:38)
[2021-01-10 11:00] VITALS: BP 139/95
== END 2021-01-10 11:01 | disposition home or self-care (01) ==
LOC: D.ER 08:47
DX: R91.1 Solitary pulmonary nodule (principal); M54.2 Cervicalgia; M79.10 Myalgia, unspecified site; E04.1 Nontoxic single thyroid nodule; Z86.73 Personal history of transient ischemic attack (TIA), and cerebral infarction without residual deficits; I11.0 Hypertensive heart disease with heart failure; I50.9 Heart failure, unspecified; V89.2XXA Person injured in unspecified motor-vehicle accident, traffic, initial encounter; Y93.9 Activity, unspecified; Y92.9 Unspecified place or not applicable

== ENCOUNTER → 2021-02-13 08:44 | Outpatient (CLI) | payer MEDICARE ==
[2021-01-10 08:54] VITALS: BMI 27.0
[~2021-02-13 08:44] MED LIST changes: +ACETAMINOPHEN500 M1 PO; +BETAPACE 80 MG80 MG PO; +CYCLOBENZAPRINE10 MG PO; +JANTOVEN2 MG PO; +NAPROSYN500 MG PO; +RESTORIL15 MG PO
== END | disposition home or self-care (01) ==
LOC: D.US 08:30
PROVIDERS: ATTEND Family Medicine
DX: E04.1 Nontoxic single thyroid nodule (principal); R92.1 Mammographic calcification found on diagnostic imaging of breast